=== PATIENT | female | born 1970 | race Caucasian/White ===

== ENCOUNTER 2022-08-12 18:18 | Emergency (ER) | payer MEDICARE, MEDICAID ==
[2022-08-12] MEDS ORDERED: Ketorolac 60 MG/2 ML SDV IM ONE (19:26)
== END 2022-08-12 20:00 | disposition home or self-care (01) ==
LOC: JD.ED 18:18
DX: M79.671 Pain in right foot (principal); E03.9 Hypothyroidism, unspecified; Z88.5 Allergy status to narcotic agent; Z88.2 Allergy status to sulfonamides; W54.1XXA Struck by dog, initial encounter
CPT/HCPCS: 73630; 96372; 99283; J1885